=== PATIENT | female | born 1950 | race Caucasian/White ===

== ENCOUNTER 2019-07-24 14:42 | Observation (INO) | payer MEDICARE, OTHER ==
[2019-07-24] MEDS ORDERED: BABY ASPIRIN 81 MG CHEW PO ONE (14:53)
[2019-07-24] MEDS ORDERED: Nitrostat 0.4 MG (ED) SL ONE (14:53)
[2019-07-24] MEDS ORDERED: Pepcid 20 MG VIAL IV ONE ×2 (14:53→15:18)
--- NOTE | 2019-07-24 15:14 | ERPHSYRPT ---
- History of Present Illness Time Seen by Provider: 07/24/19 14:45 Historian: patient Exam Limitations: no limitations Patient Subjective Stated Complaint: Sudden onset chest pain in the medial sternum, came from physical therapy and had not began when the pain started, denies N&V, rates pain 08/14, Triage Nursing Assessment: vitals wnl, denies pain now at this time, pulses normal, S1-S2 sounds heard, states that pain had lasted for approx 2 minutes Physician History: Sudden onset of chest pain while waiting to start physical therapy. Timing/Duration: today (10 minutes ago) Activities at Onset: none Quality: pressure Location: central Chest Pain Radiation: no radiation Severity of Pain-Max: severe Severity of Pain-Current: mild Modifying Factors: Improves With: nothing Associated Symptoms: denies symptoms, No nausea, No vomiting, No palpitations, No heartburn, No abdominal pain, No shortness of breath, No cough, No hurts to breathe, No diaphoresis, No chills, No fever, No fatigue, No weakness, No swelling/lump in chest, No syncope, No rash, No headache, No dizziness, No edema , No back pain Prior Chest Pain/Cardiac Workup: no prior chest pain Nitro Today/Relief: no nitro taken today Aspirin Treatment Today: no aspirin today Allergies/Adverse Reactions: Penicillins Allergy (Severe, Verified 07/24/19 15:10) Difficulty Breathing Home Medications: Amlodipine Besylate 5 mg [Norvasc 5 mg] 5 mg PO DAILY 05/25/13 [History] Insulin Detemir [Levemir Flexpen] 64 unit SQ BID 09/11/13 [History] Insulin Lispro [Humalog] 25 unit SQ TIDWMEALS 05/06/14 [History] Atorvastatin Calcium [Lipitor] 20 mg PO DAILY 07/24/19 [History] Meloxicam [Mobic] 15 mg PO DAILY 07/24/19 [History] Methimazole 10 mg PO BID 07/24/19 [History] Metoprolol Succinate 25 mg Xl* [Toprol-Xl 25MG Tablets] 25 mg PO DAILY [History] Rivaroxaban [Xarelto] 20 mg PO DAILY 07/24/19 [History] Hx Tetanus, Diphtheria Vaccination/Date Given: Yes (>20 yrs) Hx Influenza Vaccination/Date Given: Yes (2013) Hx Pneumococcal Vaccination/Date Given: Yes (2013) - Review of Systems Constitutional: No Fever, No Chills, No Fatigue Eyes: No Eye Pain, No Vision Changes Ears, Nose, & Throat: No Epistaxis, No Hoarse, No Painful Swallowing Respiratory: No Cough, No Dyspnea Cardiac: Chest Pain, No Edema, No Syncope Abdominal/Gastrointestinal: No Abdominal Pain, No Nausea, No Vomiting, No Diarrhea, No Hematemesis, No Hematochezia, No Melena Genitourinary Symptoms: No Dysuria, No Hematuria, No Flank Pain Musculoskeletal: No Back Pain, No Neck Pain Skin: No Rash Neurological: No Dizziness, No Focal Weakness, No Sensory Changes All Other Systems: Reviewed and Negative - Past Medical History Pertinent Past Medical History: Yes Neurological History: No Pertinent History ENT History: No Pertinent History Cardiac History: High Cholesterol, Hypertension Respiratory History: No Pertinent History Endocrine Medical History: Diabetes Type II, Hypothyroidism Musculoskeletal History: Fractures, Osteoarthritis GI Medical History: Colorectal Cancer History: No Pertinent History Psycho-Social History: No Pertinent History Female Reproductive Disorders: Ovarian Cancer, Uterine Cancer Other Medical History: COLON AND UTERINE CANCER WITH HX OF HYSTERECTOMY AND COLECTOMY 2013. HX FX CLAVICLE >30 YEARS AGO. OA LEFT KNEE. - Past Surgical History Past Surgical History: Yes Neuro Surgical History: No Pertinent History Cardiac: No Pertinent History Respiratory: No Pertinent History Gastrointestinal: Colon Resection Genitourinary: No Pertinent History Musculoskeletal: No Pertinent History Female Surgical History: Section Other Surgical History: COLON RESECTION - Social History Smoking Status: Former smoker How long have you smoked: 10 yrs Exposure to second hand smoke: Yes Drug Use: none Patient Lives Alone: No - Nursing Vital Signs Nursing Vital Signs: Initial Vital Signs Temperature 97.9 F 07/24/19 14:47 Pulse Rate 97 H 07/24/19 14:47 Respiratory Rate 16 07/24/19 14:47 Blood Pressure 122/83 07/24/19 14:47 O2 Sat by Pulse Oximetry 98 07/24/19 14:47 Pain Scale Pain Intensity 10 - Physical Exam General Appearance: no apparent distress, alert Eye Exam: PERRL/EOMI, eyes nml inspection Ears, Nose, Throat Exam: normal ENT inspection, moist mucous membranes Neck Exam: normal inspection, non-tender, supple, full range of motion Respiratory Exam: normal breath sounds, lungs clear, airway intact, accessory muscle use, No respiratory distress, No crackles/rales, No rhonchi, No wheezing , No stridor Cardiovascular Exam: regular rate/rhythm, normal heart sounds, normal peripheral pulses, capillary refill <2 sec Gastrointestinal/Abdomen Exam: soft, No tenderness, No mass Back Exam: normal inspection, No CVA tenderness, No vertebral tenderness Extremity Exam: normal inspection, normal range of motion, No calf tenderness, No laury's sign, No pedal edema Neurologic Exam: alert, oriented x 3, cooperative, relationship management lead II-XII nml as tested, normal mood/affect, sensation nml, No motor deficits Skin Exam: normal color, warm, dry, No jaundice, No cyanosis SpO2 Interpretation: normal SpO2: 98 O2 Delivery: Room Air - Course Nursing assessment & vital signs reviewed: Yes EKG Interpreted by Me: RATE (96), Sinus Rhythm (sinus arrythmia), NORMAL AXIS, NORMAL INTERVALS, NORMAL QRS, NORMAL ST-T, Other (no appreciable change in comparison to EKG from 02/10/2019) - Radiology Exams Chest X-ray Interpretation: Interpreted by me, Reviewed by me, No Fracture, No Pneumonia, No Pneumothorax, No Infiltrates, Nml Mediastinum, Other (cardiomegaly ) Ordered Tests: Active Orders 24 hr Category Date Time Status K [employer] Principal STAT Care 07/24/19 14:54 Active EKG-ER Only STAT Care 07/24/19 14:53 Active IV Insertion STAT Care 07/24/19 14:53 Active CHEST 1 VIEW (PORTABLE) Stat Exams 07/24/19 14:54 Completed CBC W DIFF Stat Lab 07/24/19 15:05 Completed CK-Creatinine Phosphokinase Stat Lab 07/24/19 15:05 Completed CMP Stat Lab 07/24/19 15:05 Completed LIPASE Stat Lab 07/24/19 15:05 Completed NT PRO BNP Stat Lab 07/24/19 15:05 Completed PROTIME WITH INR Stat Lab 07/24/19 15:05 Completed PTT Stat Lab 07/24/19 15:05 Completed TROPONIN Q3H Lab 07/24/19 15:05 Completed TROPONIN Q3H Lab 07/24/19 18:00 Ordered TROPONIN Q3H Lab 07/24/19 21:00 Ordered TROPONIN Q3H Lab 07/25/19 00:00 Ordered TROPONIN Q3H Lab 07/25/19 03:00 Ordered Medication Summary Discontinued Medications Generic Name Dose Route Start Last Admin Trade Name Anatoly PRN Reason Stop Dose Admin Aspirin 324 mg 07/24/19 14:53 07/24/19 15:21 Baby Aspirin 81 Mg Chew PO 07/24/19 14:54 324 mg STAT ONE Administration Famotidine 20 mg 07/24/19 14:53 07/24/19 15:22 Pepcid 20 Mg Vial IV 07/24/19 14:54 20 mg STAT ONE Administration Famotidine Confirm 07/24/19 15:18 Pepcid 20 Mg Vial Administered 07/24/19 15:19 Dose 20 mg IV .STK-MED ONE Nitroglycerin 0.4 mg 07/24/19 14:53 07/24/19 16:01 Nitrostat 0.4 Mg (Ed) SL 07/24/19 14:54 Not Given STAT ONE Lab/Rad Data: Laboratory Result Diagrams 07/24/19 15:05 07/24/19 15:05 Laboratory Results 07/24/19 07/24/19 07/24/19 Range/Units 15:05 15:05 15:05 WBC (4.0-10.5) K/mm3 RBC (4.1-5.4) M/mm3 Hgb (12.0-16.0) gm/dl Hct (35-47) % MCV (78-100) fl MCH (26-32) pg MCHC (32-36) g/dl RDW (11.5-14.0) % Plt Count (150-450) K/mm3 MPV (6-9.5) fl Gran % (36.0-66.0) % Eos # (Auto) (0-0.5) Absolute Lymphs (auto) (1.0-4.6) Absolute Monos (auto) (0.0-1.3) Lymphocytes % (24.0-44.0) % Monocytes % (0.0-12.0) % Eosinophils % (0.00-5.0) % Basophils % (0.0-0.4) % Absolute Granulocytes (1.4-6.9) Basophils # (0-0.4) PT 24.1 H (9.95-12.35) SECONDS INR 2.10 (0.8-3.0) APTT 49.4 H (25.3-37.0) SECONDS Sodium (137-145) mmol/L Potassium (3.5-5.1) mmol/L Chloride (98-107) mmol/L Carbon Dioxide (22-30) mmol/L Anion Gap (5-15) MEQ/L BUN (7-17) mg/dL Creatinine (0.52-1.04) mg/dL Estimated GFR ML/MIN Glucose (74-106) mg/dL Calcium (8.4-10.2) mg/dL Total Bilirubin (0.2-1.3) mg/dL AST (14-36) U/L ALT (0-35) U/L Alkaline Phosphatase (38-126) U/L Creatine Kinase (30-135) U/L Troponin I < 0.012 (0.000-0.034) ng/mL NT-Pro-B Natriuret Pep (0-900) pg/mL Serum Total Protein (6.3-8.2) g/dL Albumin (3.5-5.0) g/dL Lipase 20 L (23-300) U/L 07/24/19 07/24/19 Range/Units 15:05 15:05 WBC 13.4 H (4.0-10.5) K/mm3 RBC 4.94 (4.1-5.4) M/mm3 Hgb 14.0 (12.0-16.0) gm/dl Hct 44.1 (35-47) % MCV 89.3 (78-100) fl MCH 28.3 (26-32) pg MCHC 31.7 L (32-36) g/dl RDW 14.9 H (11.5-14.0) % Plt Count 318 (150-450) K/mm3 MPV 10.1 H (6-9.5) fl Gran % 76.5 H (36.0-66.0) % Eos # (Auto) 0.18 (0-0.5) Absolute Lymphs (auto) 2.12 (1.0-4.6) Absolute Monos (auto) 0.79 (0.0-1.3) Lymphocytes % 15.9 L (24.0-44.0) % Monocytes % 5.9 (0.0-12.0) % Eosinophils % 1.3 (0.00-5.0) % Basophils % 0.4 (0.0-0.4) % Absolute Granulocytes 10.22 H (1.4-6.9) Basophils # 0.06 (0-0.4) PT (9.95-12.35) SECONDS INR (0.8-3.0) APTT (25.3-37.0) SECONDS Sodium 141 (137-145) mmol/L Potassium 4.1 (3.5-5.1) mmol/L Chloride 103 (98-107) mmol/L Carbon Dioxide 27 (22-30) mmol/L Anion Gap 14.7 (5-15) MEQ/L BUN 11 (7-17) mg/dL Creatinine 0.50 L (0.52-1.04) mg/dL Estimated GFR > 60.0 ML/MIN Glucose 212 H (74-106) mg/dL Calcium 8.9 (8.4-10.2) mg/dL Total Bilirubin 0.80 (0.2-1.3) mg/dL AST 68 H (14-36) U/L ALT 22 (0-35) U/L Alkaline Phosphatase 133 H (38-126) U/L Creatine Kinase 24 L (30-135) U/L Troponin I (0.000-0.034) ng/mL NT-Pro-B Natriuret Pep 87.4 (0-900) pg/mL Serum Total Protein 7.7 (6.3-8.2) g/dL Albumin 3.9 (3.5-5.0) g/dL Lipase (23-300) U/L - Progress Air Movement: good Progress Note: 07/24/19 15:08 Pain has resolved without medication given 07/24/19 16:52 Patient has no chest pain throughout her time in the emergency department. Patient has a HEART score of 5, moderate risk of MACE in the next 30 days 07/24/19 17:03 Discussed the case with Dr Kohli, Hospitalist. Dr Kohli accepted the patient for observation to the hospital for further monitoring and testing Discussed with .: Dustin Will see patient in: hospital (observation) Counseled pt/family regarding: lab results, diagnosis, need for follow-up, rad results - Departure Departure Disposition: Observation ([facility] to Dr Kohli' service) Clinical Impression: Acute chest pain Condition: Fair Critical Care Time: No Referrals: MIA KOHLI MD [Primary Care Provider] -
[2019-07-24 15:37] LABS: BASOPHIL % 0.4 % (0.0-0.4); Basophil (Absolute #) 0.06 (0-0.4); Eosinophil % 1.3 % (0.00-5.0); Eosinophil (Absolute #) 0.18 (0-0.5); Granulocyte Absolute (ANC) 10.22 (1.4-6.9); Granulocytes % 76.5 % (36.0-66.0); Hematocrit 44.1 % (35-47); Lymphocyte (Absolute #) 2.12 (1.0-4.6); Lymphocytes % 15.9 % (24.0-44.0); Mean Cell Volume 89.3 fl (78-100); Mean Corpuscular Hemoglobin 28.3 pg (26-32); Mean Corpuscular Hgb Concent. 31.7 g/dl (32-36); Mean Platelet Volume 10.1 fl (6-9.5); Monocyte (Absolute #) 0.79 (0.0-1.3); Monocytes % 5.9 % (0.0-12.0); Platelet Count 318 K/mm3 (150-450); Red Blood Count 4.94 M/mm3 (4.1-5.4); Red Cell Distribution Width 14.9 % (11.5-14.0); White Blood Count 13.4 K/mm3 (4.0-10.5)
[2019-07-24 15:59] LABS: ALBUMIN 3.9 g/dL (3.5-5.0); ALKALINE PHOSPHATASE 133 U/L (38-126); ANION GAP 14.7 MEQ/L (5-15); BLOOD UREA NITROGEN 11 mg/dL (7-17); CHLORIDE 103 mmol/L (98-107); CK-Creatinine Phosphokinase 24 U/L (30-135); Calcium 8.9 mg/dL (8.4-10.2); Carbon Dioxide 27 mmol/L (22-30); Glucose 212 mg/dL (74-106); INR 2.1 (0.8-3.0); NT PRO BNP 87.4 pg/mL (0-900); PROTIME 24.1 SECONDS (9.95-12.35); Potassium 4.1 mmol/L (3.5-5.1); SGOT/AST 68 U/L (14-36); SGPT/ALT 22 U/L (0-35); SODIUM 141 mmol/L (137-145); Total Protein 7.7 g/dL (6.3-8.2)
[2019-07-24 16:02] LABS: PTT 49.4 SECONDS (25.3-37.0)
--- NOTE | 2019-07-24 16:15 | XRAY ---
Indication: Chest pain. Comparison: November 17, 2013. Portable apical lordotic chest remains clear. Heart is not enlarged for AP portable technique. Bony thorax intact again with mild degenerative changes. Impression: Stable nonacute chest.
[2019-07-24] MEDS ORDERED: TYLENOL 325 MG PO PRN (17:53)
[2019-07-24] MEDS: Pepcid 20 MG PO SCH (21:09)
[2019-07-24] MEDS ORDERED: MILK OF MAGNESIA 30 ML PO PRN (21:32)
[2019-07-24] MEDS ORDERED: MAALOX ES 30 ML UNIT DOSE PO PRN (21:32)
[2019-07-24] MEDS ORDERED: Phenergan 25 MG INJ IV PRN (21:32)
[2019-07-24] MEDS ORDERED: Zofran 4 MG/2 ML VIAL IV PRN (21:32)
[2019-07-24] MEDS ORDERED: MORPHINE SULFATE 2 MG INJ IV PRN (21:32)
[2019-07-24] MEDS ORDERED: Nitrostat 0.4 MG Tablet SL PRN (21:32)
[2019-07-24] MEDS ORDERED: Senokot-S Tablet PO PRN (21:32)
[2019-07-24] MEDS: Lantus Insulin SQ SCH (22:33)
[2019-07-24] MEDS: NovoLOG Insulin SQ PRN (22:34)
[2019-07-25 04:06] VITALS: O2SAT 94
[2019-07-25] MEDS ORDERED: Sodium Chloride 0.9% 10 ML FLUSH Syringe IV SCH (06:00)
[2019-07-25] MEDS: NovoLOG Insulin SQ PRN (07:36)
[2019-07-25 07:54] VITALS: BP 142/60; PULSE 85
--- NOTE | 2019-07-25 08:21 | PCM.HP ---
History of Present Illness - Chief Complaint Chief Complaint: acute chest pain History of Present Illness: is a 68 year old female who presented to the ER yesterday with chest pain while she was at PT, she has a history of negative stress test last year and follows with Dr Kimbrough. She describes some vague pain in her chest from front to back, has resolved and had no pain overnight. She relays some problems with constipation as of late. - Review of Systems Constitutional: No Symptoms Respiratory: No Cough, No Short Of Breath Cardiac: Chest Pain Abdominal/Gastrointestinal: No Abdominal Pain, No Nausea, No Vomiting, No Diarrhea Genitourinary Symptoms: No Dysuria Skin: No Rash All Other Systems: Reviewed and Negative Medications & Allergies Home Medications: Home Medication List Amlodipine Besylate 5 mg [Norvasc 5 mg] 5 mg PO DAILY 05/25/13 [History Confirmed 07/24/19] Insulin Detemir [Levemir Flexpen] 64 unit SQ BID 09/11/13 [History Confirmed ] Insulin Lispro [Humalog] 25 unit SQ TIDWMEALS 05/06/14 [History Confirmed ] Atorvastatin Calcium [Lipitor] 20 mg PO DAILY 07/24/19 [History Confirmed ] Meloxicam [Mobic] 15 mg PO DAILY 07/24/19 [History Confirmed 07/24/19] Methimazole 10 mg PO BID 07/24/19 [History Confirmed 07/24/19] Metoprolol Succinate 25 mg Xl* [Toprol-Xl 25MG Tablets] 25 mg PO DAILY [History Confirmed 07/24/19] Rivaroxaban [Xarelto] 20 mg PO DAILY 07/24/19 [History Confirmed 07/24/19] Allergies/Adverse Reactions: Allergies Allergy/AdvReac Type Severity Reaction Status Date / Time corn Allergy Severe Verified 07/24/19 18:15 Penicillins Allergy Severe Difficulty Verified 07/24/19 15:10 Breathing - Past Medical History Past Medical History: Yes Neurological History: No Pertinent History ENT History: No Pertinent History Cardiac History: High Cholesterol, Hypertension Respiratory History: No Pertinent History Endocrine Medical History: Diabetes Type II, Hypothyroidism Musculoskelatal History: Fractures, Osteoarthritis GI Medical History: Colorectal Cancer History: No Pertinent History Pyscho-Social History: No Pertinent History Reproductive Disorders: Ovarian Cancer, Uterine Cancer Comment: COLON AND UTERINE CANCER WITH HX OF HYSTERECTOMY AND COLECTOMY 2014. HX FX CLAVICLE >30 YEARS AGO. OA LEFT KNEE. - Female History Are you now?: No - Past Surgical History Past Surgical History: Yes Neuro Surgical History: No Pertinent History Cardiac History: No Pertinent History Respiratory Surgery: No Pertinent History GI Surgical History: Colon Resection Genitourinary Surgical Hx: No Pertinent History Musculskeletal Surgical Hx: No Pertinent History Female Surgical History: Section Other Surgical History: COLON RESECTION - Social History Smoking Status: Never smoker How long have you smoked: 10 yrs Exposure to second hand smoke: Yes Alcohol: Rarely Drug Use: none - Physical Exam Vital Signs: Vital Signs - 24 hr Temp Pulse Pulse Resp BP Pulse Ox 07/25/19 07:53 98.5 F 85 20 142/60 94 L 07/25/19 04:04 98.2 F 87 22 127/72 94 L 07/25/19 00:13 98.7 F 91 H 18 132/66 93 L 07/24/19 19:40 98.5 F 87 20 128/60 94 L 07/24/19 18:41 96 07/24/19 18:22 98.5 F 87 20 114/60 94 L 07/24/19 17:36 98.4 F 78 21 114/60 95 07/24/19 17:19 84 20 121/62 98 07/24/19 17:15 98 07/24/19 16:59 97 H 102/54 88 L 07/24/19 16:47 79 22 103/50 94 L 07/24/19 15:55 98.3 F 87 12 127/57 90 L 07/24/19 15:48 98.3 F 87 12 127/57 90 L 07/24/19 14:47 97.9 F 92 H 97 H 16 122/83 98 General Appearance: no apparent distress, alert Neurologic Exam: alert, oriented x 3, cooperative, normal mood/affect, nml cerebellar function, nml station & gait, sensation nml, No motor deficits Eye Exam: PERRL/EOMI, eyes nml inspection Respiratory Exam: normal breath sounds, lungs clear, No respiratory distress Cardiovascular Exam: regular rate/rhythm, normal heart sounds, normal peripheral pulses Gastrointestinal/Abdomen Exam: soft, normal bowel sounds, No tenderness, No mass Extremity Exam: normal inspection, normal range of motion, pelvis stable Skin Exam: normal color, warm, dry, No rash Results - Labs Lab/Micro Results: Accuchecks Date 07/25/19 Time 07:30 Accucheck Value: 161 Accucheck Value: 247 Lab Results-Last 24 Hours 07/24/19 07/24/19 07/24/19 Range/Units 15:05 15:05 15:05 WBC 13.4 H (4.0-10.5) K/mm3 RBC 4.94 (4.1-5.4) M/mm3 Hgb 14.0 (12.0-16.0) gm/dl Hct 44.1 (35-47) % MCV 89.3 (78-100) fl MCH 28.3 (26-32) pg MCHC 31.7 L (32-36) g/dl RDW 14.9 H (11.5-14.0) % Plt Count 318 (150-450) K/mm3 MPV 10.1 H (6-9.5) fl Gran % 76.5 H (36.0-66.0) % Eos # (Auto) 0.18 (0-0.5) Absolute Lymphs (auto) 2.12 (1.0-4.6) Absolute Monos (auto) 0.79 (0.0-1.3) Lymphocytes % 15.9 L (24.0-44.0) % Monocytes % 5.9 (0.0-12.0) % Eosinophils % 1.3 (0.00-5.0) % Basophils % 0.4 (0.0-0.4) % Absolute Granulocytes 10.22 H (1.4-6.9) Basophils # 0.06 (0-0.4) PT 24.1 H (9.95-12.35) SECONDS INR 2.10 (0.8-3.0) APTT 49.4 H (25.3-37.0) SECONDS Sodium 141 (137-145) mmol/L Potassium 4.1 (3.5-5.1) mmol/L Chloride 103 (98-107) mmol/L Carbon Dioxide 27 (22-30) mmol/L Anion Gap 14.7 (5-15) MEQ/L BUN 11 (7-17) mg/dL Creatinine 0.50 L (0.52-1.04) mg/dL Estimated GFR > 60.0 ML/MIN Glucose 212 H (74-106) mg/dL Calcium 8.9 (8.4-10.2) mg/dL Total Bilirubin 0.80 (0.2-1.3) mg/dL AST 68 H (14-36) U/L ALT 22 (0-35) U/L Alkaline Phosphatase 133 H (38-126) U/L Creatine Kinase 24 L (30-135) U/L Troponin I (0.000-0.034) ng/mL NT-Pro-B Natriuret Pep 87.4 (0-900) pg/mL Serum Total Protein 7.7 (6.3-8.2) g/dL Albumin 3.9 (3.5-5.0) g/dL Lipase (23-300) U/L 07/24/19 07/24/19 07/24/19 Range/Units 15:05 15:05 18:10 WBC (4.0-10.5) K/mm3 RBC (4.1-5.4) M/mm3 Hgb (12.0-16.0) gm/dl Hct (35-47) % MCV (78-100) fl MCH (26-32) pg MCHC (32-36) g/dl RDW (11.5-14.0) % Plt Count (150-450) K/mm3 MPV (6-9.5) fl Gran % (36.0-66.0) % Eos # (Auto) (0-0.5) Absolute Lymphs (auto) (1.0-4.6) Absolute Monos (auto) (0.0-1.3) Lymphocytes % (24.0-44.0) % Monocytes % (0.0-12.0) % Eosinophils % (0.00-5.0) % Basophils % (0.0-0.4) % Absolute Granulocytes (1.4-6.9) Basophils # (0-0.4) PT (9.95-12.35) SECONDS INR (0.8-3.0) APTT (25.3-37.0) SECONDS Sodium (137-145) mmol/L Potassium (3.5-5.1) mmol/L Chloride (98-107) mmol/L Carbon Dioxide (22-30) mmol/L Anion Gap (5-15) MEQ/L BUN (7-17) mg/dL Creatinine (0.52-1.04) mg/dL Estimated GFR ML/MIN Glucose (74-106) mg/dL Calcium (8.4-10.2) mg/dL Total Bilirubin (0.2-1.3) mg/dL AST (14-36) U/L ALT (0-35) U/L Alkaline Phosphatase (38-126) U/L Creatine Kinase (30-135) U/L Troponin I < 0.012 < 0.012 (0.000-0.034) ng/mL NT-Pro-B Natriuret Pep (0-900) pg/mL Serum Total Protein (6.3-8.2) g/dL Albumin (3.5-5.0) g/dL Lipase 20 L (23-300) U/L 07/24/19 07/25/19 07/25/19 Range/Units 21:02 00:58 03:08 WBC (4.0-10.5) K/mm3 RBC (4.1-5.4) M/mm3 Hgb (12.0-16.0) gm/dl Hct (35-47) % MCV (78-100) fl MCH (26-32) pg MCHC (32-36) g/dl RDW (11.5-14.0) % Plt Count (150-450) K/mm3 MPV (6-9.5) fl Gran % (36.0-66.0) % Eos # (Auto) (0-0.5) Absolute Lymphs (auto) (1.0-4.6) Absolute Monos (auto) (0.0-1.3) Lymphocytes % (24.0-44.0) % Monocytes % (0.0-12.0) % Eosinophils % (0.00-5.0) % Basophils % (0.0-0.4) % Absolute Granulocytes (1.4-6.9) Basophils # (0-0.4) PT (9.95-12.35) SECONDS INR (0.8-3.0) APTT (25.3-37.0) SECONDS Sodium (137-145) mmol/L Potassium (3.5-5.1) mmol/L Chloride (98-107) mmol/L Carbon Dioxide (22-30) mmol/L Anion Gap (5-15) MEQ/L BUN (7-17) mg/dL Creatinine (0.52-1.04) mg/dL Estimated GFR ML/MIN Glucose (74-106) mg/dL Calcium (8.4-10.2) mg/dL Total Bilirubin (0.2-1.3) mg/dL AST (14-36) U/L ALT (0-35) U/L Alkaline Phosphatase (38-126) U/L Creatine Kinase (30-135) U/L Troponin I < 0.012 < 0.012 < 0.012 (0.000-0.034) ng/mL NT-Pro-B Natriuret Pep (0-900) pg/mL Serum Total Protein (6.3-8.2) g/dL Albumin (3.5-5.0) g/dL Lipase (23-300) U/L Accuchecks Date 07/25/19 Time 07:30 Accucheck Value: 161 Accucheck Value: 247 - Radiology Impressions Radiology Exams & Impressions: Radiology Procedures Category Date Time Status CHEST 1 VIEW (PORTABLE) Stat Exams 07/24/19 14:54 Completed ECHO W/2D AND DOPPLER [US] Routine Exams 07/25/19 10:00 Ordered Assessment/Plan (1) Chest pain Current Visit: Yes Status: Acute Assessment & Plan: CA ruled out, sounds like GI source possibly, will add pepcid Code(s): R07.9 - CHEST PAIN, UNSPECIFIED (2) Constipation Current Visit: Yes Status: Acute Assessment & Plan: add daily Miralax, f/u in office Code(s): K59.00 - CONSTIPATION, UNSPECIFIED
--- NOTE | 2019-07-25 08:23 | PCM.DCORD ---
- Discharge Disposition: Home, Self-Care Condition: Good Prescriptions: New Polyethylene Glycol 3350 17 gm [Miralax Powder 17GM PACKET] 17 gm PO DAILY #30 packet Famotidine [Pepcid] 40 mg PO HS #30 tablet Continue Amlodipine Besylate 5 mg [Norvasc 5 mg] 5 mg PO DAILY Insulin Detemir [Levemir Flexpen] 64 unit SQ BID Insulin Lispro [Humalog] 25 unit SQ TIDWMEALS Rivaroxaban [Xarelto] 20 mg PO DAILY Meloxicam [Mobic] 15 mg PO DAILY Metoprolol Succinate 25 mg Xl* [Toprol-Xl 25MG Tablets] 25 mg PO DAILY Methimazole 10 mg PO BID Atorvastatin Calcium [Lipitor] 20 mg PO DAILY Follow up with: MIA KOHLI MD [Primary Care Provider] - 1 Week SOO KENYON MD [CONSULTING PHYSICIAN] - 1 Week
[2019-07-25] MEDS: Pepcid 20 MG PO SCH (09:09)
[2019-07-25] MEDS: Lantus Insulin SQ SCH (09:09)
[2019-07-25] MEDS ORDERED: MEDICATION INTERVENTION PO SCH (09:30)
[2019-07-25] MEDS ORDERED: Toprol-Xl 25MG Tablets PO SCH (10:00)
[2019-07-25] MEDS ORDERED: NON-FORMULARY ITEM (Atorvastatin Calcium [Lipitor] 20 MG) PO SCH (10:00)
[2019-07-25] MEDS ORDERED: XARELTO 10 MG TABLET PO SCH (10:00)
[2019-07-25] MEDS ORDERED: METHIMAZOLE 10 MG PO SCH (10:00)
[2019-07-25] MEDS ORDERED: ZOCOR 20MG PO SCH (10:00)
[2019-07-25] MEDS ORDERED: Mobic 7.5 MG PO SCH (10:00)
[2019-07-25] MEDS ORDERED: NORVASC 5 MG PO SCH (10:00)
[2019-07-25] MEDS ORDERED: INSULIN LISPRO 25 UNIT SQ SCH (12:00)
[2019-07-25] MEDS ORDERED: NovoLOG Insulin SQ SCH (12:00)
== END 2019-07-25 10:00 | disposition home or self-care (01) ==
LOC: ED 14:42 → MED SURG 17:55
PROVIDERS: ADMIT Family Medicine; ATTEND Family Medicine
DX: R07.9 Chest pain, unspecified (principal); I10 Essential (primary) hypertension; E11.9 Type 2 diabetes mellitus without complications; E78.00 Pure hypercholesterolemia, unspecified; E03.9 Hypothyroidism, unspecified; K59.00 Constipation, unspecified; Z85.038 Personal history of other malignant neoplasm of large intestine; Z79.899 Other long term (current) drug therapy; Z85.42 Personal history of malignant neoplasm of other parts of uterus
CPT/HCPCS: 36000; 36415; 71045; 80053; 82550; 82962; 83036; 83690; 83880; 84484; 85025; 85610; 85730; 93005; 93041; 93268; 93306; 94760; 96374; 99285; A9270-GY; G0378

== ENCOUNTER 2022-10-11 06:13 | Emergency (ER) | payer MEDICARE ==
[2022-10-11] MEDS ORDERED: Hydromorphone 1 mg/ml Injection IV ONE (06:57)
[2022-10-11] MEDS ORDERED: Zofran 4 MG/2 ML VIAL IV ONE (06:57)
[2022-10-11] MEDS ORDERED: Sodium Chloride 0.9% 1000 ML 1,000 ML IV SCH (07:00)
[2022-10-11] MEDS ORDERED: Zofran 4 MG/2 ML VIAL ONE (07:11)
[2022-10-11] MEDS ORDERED: Sodium Chloride 0.9% 1000 ML 1,000 ML ONE (07:11)
[2022-10-11] MEDS ORDERED: Hydromorphone 1 mg/ml Injection ONE (07:11)
[2022-10-11 07:22] LABS: Bacteria FEW /HPF (NEGATIVE); Epithelial Cells FEW /HPF (FEW); Mucus SLIGHT /HPF (NEGATIVE); WBC 51-100 /HPF (0-5)
[2022-10-11 07:25] LABS: Absolute Neutrophil Ct (ANC) 13.04 x10^3/uL (1.4-6.9); Basophil (Absolute #) 0.04 x10^3/uL (0-0.4); Eosinophil % 0.5 % (0.00-5.0); Eosinophil (Absolute #) 0.08 x10^3/uL (0-0.5); Hematocrit 45.9 % (35-47); Hemoglobin 14.3 g/dL (12.0-16.0); Lymphocyte (Absolute #) 0.93 x10^3/uL (1.0-4.6); Lymphocytes % 6.1 % (24.0-44.0); Mean Cell Volume 86.3 fL (78-100); Mean Corpuscular Hemoglobin 26.9 pg (26-32); Mean Corpuscular Hgb Concent. 31.2 g/dL (32-36); Mean Platelet Volume 10.2 fL (7.5-11.0); Monocyte (Absolute #) 1.03 x10^3/uL (0.0-1.3); Monocytes % 6.8 % (0.0-12.0); Neutrophil % 85.8 % (36.0-66.0); Platelet Count 334 x10^3/uL (150-450); Red Blood Count 5.32 x10^6/uL (4.1-5.4); Red Cell Distribution Width 15.6 % (11.5-14.0); White Blood Count 15.2 x10^3/uL (4.0-10.5)
[2022-10-11 07:32] LABS: Appearance CLOUDY (CLEAR); Bilirubin NEGATIVE (NEGATIVE); Dipstick done @ ? MAIN LAB; Glucose 500 mg/dL (NEGATIVE); Ketones NEGATIVE (NEGATIVE); Nitrite NEGATIVE (NEGATIVE); Ph 5.5 (5-6); Protein,Urine Dip TRACE (Negative); RBC MODERATE Ery/ul (0-5); Specific Gravity 1.025 (1.005-1.025); Urine Cultured Indicated? YES; Urobilinogen 0.2 mg/dL (0-1)
[2022-10-11 07:33] LABS: INR 1.22 (0.8-3.0); PROTIME 12.7 SECONDS (9.4-12.5)
[2022-10-11 07:55] LABS: ALBUMIN 4.2 g/dL (3.5-5.0); ALKALINE PHOSPHATASE 126 U/L (38-126); AMYLASE 53 U/L (30-110); ANION GAP 12.3 MEQ/L (5-15); BLOOD UREA NITROGEN 17 mg/dL (7-17); CHLORIDE 96 mmol/L (98-107); Calcium 9.6 mg/dL (8.4-10.2); Carbon Dioxide 33 mmol/L (22-30); Creatinine 1 0.88 mg/dL (0.52-1.04); EST GLOMERULAR FILTRATION RATE > 60.0 ML/MIN; Glucose 213 mg/dL (74-106); LIPASE 22 U/L (23-300); Potassium 4.5 mmol/L (3.5-5.1); SGOT/AST 48 U/L (14-36); SGPT/ALT 13 U/L (0-35); SODIUM 137 mmol/L (137-145); Total Protein 8.5 g/dL (6.3-8.2)
--- NOTE | 2022-10-11 08:47 | XRAY ---
Indication: Right abdomen pain. History kidney stones. Multiple contiguous axial images obtained through the abdomen and pelvis without contrast using renal stone protocol. Comparison: February 22, 2021 Lung bases again demonstrates scattered subsegmental atelectasis/scarring. Heart remains borderline enlarged. New small hiatal hernia. Right kidney demonstrates stable nonobstructing punctate calculus. No new renal calculus or evidence for obstructive uropathy in either system. Noncontrasted stomach and bowel loops nonobstructed. Several small bowel loops are now mildly fluid distended with fluid leveling, ileus versus enteritis. Again appendectomy, cholecystotomy, and hysterectomy reported. No free fluid/air. Stable splenic calcified granulomas. Remaining liver, pancreas, spleen, adrenal glands, kidneys, ureters, and bladder are unremarkable for noncontrast exam. Minimal aortic calcifications without AAA. Osseous structures intact again with mild degenerative changes throughout the thoracolumbar spine. Again prominent bilateral inguinal lymph nodes again largest on the right measuring 1.5 x 2.7 cm. Impression: 1. Stable nonobstructing right renal punctate calculus. No new renal calculus or evidence for obstructive uropathy. 2. New small hiatal hernia. 3. New mild fluid distended small bowel loops with fluid leveling, ileus versus enteritis. 4. Again borderline cardiomegaly, arteriosclerotic disease, prominent bilateral inguinal lymph nodes, and degenerative spondylosis.
[2022-10-11] MEDS ORDERED: Levofloxacin 500MG/100ML D5W 500 MG/100 ML BAG IV ONE ×2 (09:13→09:25)
--- NOTE | 2022-10-11 09:19 | XRAY ---
Indication: Chest pain. Comparison: February 27, 2021 Portable chest inflated and is now clear. Heart not enlarged. Bony thorax intact again with osteopenia and degenerative changes. Impression: Nonacute chest with chronic bony findings.
--- NOTE | 2022-10-11 09:29 | ERPHSYRPT ---
- History of Present Illness Time Seen by Provider: 10/11/22 06:35 Historian: patient Exam Limitations: no limitations Patient Subjective Stated Complaint: Patient stated " I woke up around 0330 this am with severe upper ABD pain that radiates into right flank and into back. Complaints of left upper ABD pain." Complaints of N/V. Stated " I vomited times 1 around 0530 this am." Triage Nursing Assessment: Patient A/O times 4. Patient able to follow instructions without difficulty. Patient with complaints of ABD pain in upper right and left quads with complaints of pain on right side radiating into right flank and into lower back. Denies any HX of Kidney stones. Denies any SOB or chest pain. ABD tender upon palpitation. Denies any coffee ground or bloody emesis. Denies any bloody or loose stools. Patient currently being treated for Stage 1 Breast CA. Left breast/armpit is very red in color R/T radiation Physician History: Patient is a 71-year-old white female who presents with a complaint of right- sided abdominal pain which started at 3:30 AM today. The pain is in the right side and radiates across into the epigastrium and abdomen generally. It sharp and stabbing it is colicky. She has no change in urination at night at 4:45 AM today she did have some nausea and one episode of vomiting. She has had some sweats. She is currently being treated for breast cancer with radiation. She has her last general really radiation treatment today she still has focal treatments pending. Timing/Duration: today Quality: sharpness, stabbing Abdominal Pain Onset Location: flank (Right flank into the epigastric area) Pain Radiation: epigastric, other (Pain is colicky) Severity of Pain-Max: severe Severity of Pain-Current: mild Modifying Factors: Improves With: nothing Associated Symptoms: diaphoresis, nausea, vomiting Previous symptoms: no prior history Allergies/Adverse Reactions: corn Allergy (Severe, Verified 02/22/21 14:38) swelling. Penicillins Allergy (Severe, Verified 02/22/21 14:38) Difficulty Breathing Sulfa (Sulfonamide Antibiotics) Allergy (Verified 02/22/21 14:38) Home Medications: Amlodipine Besylate 5 mg [Norvasc 5 mg] 5 mg PO DAILY 05/25/13 [History] Insulin Detemir [Levemir Flexpen] 66 unit SQ BID 09/11/13 [History] Atorvastatin Calcium [Lipitor] 20 mg PO DAILY 07/24/19 [History] Metoprolol Succinate 25 mg Xl* [Toprol-Xl 25MG Tablets] 50 mg PO DAILY 07/24/19 [History] Rivaroxaban [Xarelto] 20 mg PO DAILY 07/24/19 [History] methIMAzole [Methimazole] 10 mg PO DAILY 07/24/19 [History] Ergocalciferol (Vitamin D2) [Vitamin D] 50,000 unit PO UD 02/22/21 [History] Furosemide 40 mg [Lasix 40 MG] 40 mg PO DAILY 02/22/21 [History] Insulin Lispro [Humalog] 25 unit SQ TID 02/22/21 [History] Spironolactone 25 mg [Aldactone 25 MG] 25 mg PO DAILY 02/22/21 [History] Hx Tetanus, Diphtheria Vaccination/Date Given: No Hx Influenza Vaccination/Date Given: No Hx Pneumococcal Vaccination/Date Given: No Immunizations Up to Date: Yes Travel Risk - International Travel Have you traveled outside of the country in past 3 weeks: No - Coronavirus Screening Are you exhibiting any of the following symptoms?: No Close contact with a COVID-19 positive Pt in past 14-21 Days: No - Vaccine Status Have you recieved a Covid-19 vaccination: Yes [employer]: Moderna - Vaccination Dates Date of 2cond Vaccination (if applicable): . - Review of Systems Constitutional: Night Sweats, No Fever, No Chills Eyes: No Symptoms Ears, Nose, & Throat: No Symptoms Respiratory: No Cough, No Dyspnea Cardiac: No Chest Pain, No Edema, No Syncope Abdominal/Gastrointestinal: Abdominal Pain, Nausea, Vomiting, No Diarrhea Genitourinary Symptoms: Flank Pain, No Dysuria Musculoskeletal: No Back Pain, No Neck Pain Skin: No Rash Neurological: No Dizziness, No Focal Weakness, No Sensory Changes Psychological: No Symptoms Endocrine: No Symptoms All Other Systems: Reviewed and Negative - Past Medical History Pertinent Past Medical History: Yes Neurological History: No Pertinent History ENT History: No Pertinent History Cardiac History: High Cholesterol, Hypertension Respiratory History: No Pertinent History Endocrine Medical History: Diabetes Type II, Hypothyroidism Musculoskeletal History: Fractures, Osteoarthritis GI Medical History: Colorectal Cancer History: No Pertinent History Psycho-Social History: No Pertinent History Female Reproductive Disorders: Breast Cancer, Ovarian Cancer, Uterine Cancer Other Medical History: COLON AND UTERINE CANCER WITH HX OF HYSTERECTOMY AND COLECTOMY 2014. HX FX CLAVICLE >30 YEARS AGO. OA LEFT KNEE. - Past Surgical History Past Surgical History: Yes Neuro Surgical History: No Pertinent History Cardiac: No Pertinent History Respiratory: No Pertinent History Gastrointestinal: Appendectomy, Cholecystectomy, Colon Resection Genitourinary: No Pertinent History Musculoskeletal: No Pertinent History Female Surgical History: Hysterectomy, Section Other Surgical History: COLON RESECTION - Social History Smoking Status: Former smoker How long have you smoked: 10 yrs Exposure to second hand smoke: Yes Drug Use: none Patient Lives Alone: No Significant Family History: no pertinent family hx - Nursing Vital Signs Nursing Vital Signs: Initial Vital Signs Temperature 97.6 F 10/11/22 06:14 Pulse Rate 81 10/11/22 06:14 Respiratory Rate 20 10/11/22 06:14 Blood Pressure 166/77 10/11/22 06:14 O2 Sat by Pulse Oximetry 94 L 10/11/22 06:14 Pain Scale Pain Intensity 4 - Physical Exam General Appearance: moderate distress, alert Eye Exam: PERRL/EOMI, eyes nml inspection Ears, Nose, Throat Exam: normal ENT inspection, pharynx normal, moist mucous membranes Neck Exam: normal inspection, non-tender, supple, full range of motion Respiratory Exam: normal breath sounds, lungs clear, No respiratory distress Cardiovascular Exam: regular rate/rhythm, normal heart sounds Gastrointestinal/Abdomen Exam: soft, tenderness, No mass Pelvic Exam: not done Rectal Exam: deferred Back Exam: normal inspection, normal range of motion, CVA tenderness (Right CVA tenderness), No vertebral tenderness Extremity Exam: normal inspection, normal range of motion, pelvis stable Neurologic Exam: alert, oriented x 3, cooperative, normal mood/affect, nml cerebellar function, sensation nml, No motor deficits Skin Exam: normal color, warm, dry SpO2 Interpretation: normal SpO2: 96 O2 Delivery: Room Air - Course Nursing assessment & vital signs reviewed: Yes - CT Exams Abdomen/Pelvis CT Interpretation: Other (There are some dilated loops of small bowel with air- fluid levels consistent with ileus versus enteritis. There is no sign of ureteral stones etc.) Ordered Tests: Active Orders 24 hr Category Date Time Status EKG-ER Only STAT Care 10/11/22 06:57 Active IV Insertion STAT Care 10/11/22 06:57 Active ABDOMEN AND PELVIS W/0 CONTRAS [CT] Stat Exams 10/11/22 06:58 Completed CHEST 1 VIEW (PORTABLE) Stat Exams 10/11/22 06:58 Completed AMYLASE Stat Lab 10/11/22 07:06 Completed CBC W DIFF Stat Lab 10/11/22 07:06 Completed CMP Stat Lab 10/11/22 07:06 Completed CULTURE,URINE Stat Lab 10/11/22 07:06 Received LIPASE Stat Lab 10/11/22 07:06 Completed Lactic Acid Stat Lab 10/11/22 06:57 Completed PROTIME WITH INR Stat Lab 10/11/22 07:06 Completed TROPONIN Q4H Lab 10/11/22 07:06 Completed TROPONIN Q4H Lab 10/11/22 11:00 Ordered TROPONIN Q4H Lab 10/11/22 15:00 Ordered UA W/RFX CULTURE Stat Lab 10/11/22 07:06 Completed Medication Summary Generic Name Dose Route Start Last Admin Trade Name Freq PRN Reason Stop Dose Admin Sodium Chloride 1,000 mls @ 100 mls/hr 10/11/22 07:00 10/11/22 07:14 Sodium Chloride 0.9% 1000 Ml IV 11/10/22 06:59 100 mls/hr .Q10H SERGEY Administration Levofloxacin/Dextrose 500 mg in 100 mls @ 100 mls/hr 10/11/22 09:13 Levofloxacin 500mg/100ml D5w IV 10/11/22 10:12 ONCALLTOOR ONE Discontinued Medications Generic Name Dose Route Start Last Admin Trade Name Freq PRN Reason Stop Dose Admin Hydromorphone HCl 1 mg 10/11/22 06:57 10/11/22 07:13 Hydromorphone 1 Mg/1ml Inj 1 Mg/Ml Syringe IV 10/11/22 06:58 1 mg STAT ONE Administration Hydromorphone HCl Confirm 10/11/22 07:11 Hydromorphone 1 Mg/1ml Inj 1 Mg/Ml Syringe Administered 10/11/22 07:12 Dose 1 mg .ROUTE .STK-MED ONE Ondansetron HCl 4 mg 10/11/22 06:57 10/11/22 07:13 Ondansetron Hcl 4 Mg/2 Ml Vial IV 10/11/22 06:58 4 mg STAT ONE Administration Ondansetron HCl Confirm 10/11/22 07:11 Ondansetron Hcl 4 Mg/2 Ml Vial Administered 10/11/22 07:12 Dose 4 mg .ROUTE .STK-MED ONE Lab/Rad Data: Laboratory Result Diagrams 10/11/22 07:06 10/11/22 07:06 Laboratory Results 10/11/22 10/11/22 10/11/22 Range/Units 07:06 07:06 07:06 WBC (4.0-10.5) x10^3/uL RBC (4.1-5.4) x10^6/uL Hgb (12.0-16.0) g/dL Hct (35-47) % MCV (78-100) fL MCH (26-32) pg MCHC (32-36) g/dL RDW (11.5-14.0) % Plt Count (150-450) x10^3/uL MPV (7.5-11.0) fL Gran % (36.0-66.0) % Immature Gran % (Auto) (0.00-0.4) % Nucleat RBC Rel Count (0.00-0.1) % Eos # (Auto) (0-0.5) x10^3/uL Immature Gran # (Auto) (0.00-0.03) x10^3u/L Absolute Lymphs (auto) (1.0-4.6) x10^3/uL Absolute Monos (auto) (0.0-1.3) x10^3/uL Absolute Nucleated RBC (0.00-0.01) x10^3u/L Lymphocytes % (24.0-44.0) % Monocytes % (0.0-12.0) % Eosinophils % (0.00-5.0) % Basophils % (0.0-0.4) % Absolute Granulocytes (1.4-6.9) x10^3/uL Basophils # (0-0.4) x10^3/uL PT 12.7 H (9.4-12.5) SECONDS INR 1.22 (0.8-3.0) Sodium (137-145) mmol/L Potassium (3.5-5.1) mmol/L Chloride (98-107) mmol/L Carbon Dioxide (22-30) mmol/L Anion Gap (5-15) MEQ/L BUN (7-17) mg/dL Creatinine (0.52-1.04) mg/dL Estimated GFR ML/MIN Glucose (74-106) mg/dL Lactic Acid (0.4-2.0) Calcium (8.4-10.2) mg/dL Total Bilirubin (0.2-1.3) mg/dL AST (14-36) U/L ALT (0-35) U/L Alkaline Phosphatase (38-126) U/L Troponin I < 0.012 (0.000-0.034) ng/mL Serum Total Protein (6.3-8.2) g/dL Albumin (3.5-5.0) g/dL Amylase (30-110) U/L Lipase (23-300) U/L Urinalys Dipstick Clnc MAIN LAB Urine Color YELLOW (YELLOW) Urine Appearance CLOUDY A (CLEAR) Urine pH 5.5 (5-6) Ur Specific [place] 1.025 (1.005-1.025) POC Urine Protein Conf TRACE A (Negative) Urine Ketones NEGATIVE (NEGATIVE) Urine Nitrite NEGATIVE (NEGATIVE) Urine Bilirubin NEGATIVE (NEGATIVE) Urine Urobilinogen 0.2 (0-1) mg/dL Urine Leukocytes TRACE A (NEGATIVE) Urine WBC (Auto) 51-100 A (0-5) /HPF Urine RBC (Auto) 6-10 A (0-2) /HPF U Epithel Cells (Auto) FEW (FEW) /HPF Urine Bacteria (Auto) FEW A (NEGATIVE) /HPF Urine RBC MODERATE A (0-5) Darryl/ul Urine Mucus (Auto) SLIGHT A (NEGATIVE) /HPF Ur Culture Indicated? YES Urine Glucose 500 A (NEGATIVE) mg/dL 10/11/22 10/11/22 10/11/22 Range/Units 07:06 07:06 06:57 WBC 15.2 H (4.0-10.5) x10^3/uL RBC 5.32 (4.1-5.4) x10^6/uL Hgb 14.3 (12.0-16.0) g/dL Hct 45.9 (35-47) % MCV 86.3 (78-100) fL MCH 26.9 (26-32) pg MCHC 31.2 L (32-36) g/dL RDW 15.6 H (11.5-14.0) % Plt Count 334 (150-450) x10^3/uL MPV 10.2 (7.5-11.0) fL Gran % 85.8 H (36.0-66.0) % Immature Gran % (Auto) 0.5 H (0.00-0.4) % Nucleat RBC Rel Count 0.0 (0.00-0.1) % Eos # (Auto) 0.08 (0-0.5) x10^3/uL Immature Gran # (Auto) 0.08 H (0.00-0.03) x10^3u/L Absolute Lymphs (auto) 0.93 L (1.0-4.6) x10^3/uL Absolute Monos (auto) 1.03 (0.0-1.3) x10^3/uL Absolute Nucleated RBC 0.00 (0.00-0.01) x10^3u/L Lymphocytes % 6.1 L (24.0-44.0) % Monocytes % 6.8 (0.0-12.0) % Eosinophils % 0.5 (0.00-5.0) % Basophils % 0.3 (0.0-0.4) % Absolute Granulocytes 13.04 H (1.4-6.9) x10^3/uL Basophils # 0.04 (0-0.4) x10^3/uL PT (9.4-12.5) SECONDS INR (0.8-3.0) Sodium 137 (137-145) mmol/L Potassium 4.5 (3.5-5.1) mmol/L Chloride 96 L (98-107) mmol/L Carbon Dioxide 33 H (22-30) mmol/L Anion Gap 12.3 (5-15) MEQ/L BUN 17 (7-17) mg/dL Creatinine 0.88 (0.52-1.04) mg/dL Estimated GFR > 60.0 ML/MIN Glucose 213 H (74-106) mg/dL Lactic Acid 2.2 H (0.4-2.0) Calcium 9.6 (8.4-10.2) mg/dL Total Bilirubin 1.00 (0.2-1.3) mg/dL AST 48 H (14-36) U/L ALT 13 (0-35) U/L Alkaline Phosphatase 126 (38-126) U/L Troponin I (0.000-0.034) ng/mL Serum Total Protein 8.5 H (6.3-8.2) g/dL Albumin 4.2 (3.5-5.0) g/dL Amylase 53 (30-110) U/L Lipase 22 L (23-300) U/L Urinalys Dipstick Clnc Urine Color (YELLOW) Urine Appearance (CLEAR) Urine pH (5-6) Ur Specific [place] (1.005-1.025) POC Urine Protein Conf (Negative) Urine Ketones (NEGATIVE) Urine Nitrite (NEGATIVE) Urine Bilirubin (NEGATIVE) Urine Urobilinogen (0-1) mg/dL Urine Leukocytes (NEGATIVE) Urine WBC (Auto) (0-5) /HPF Urine RBC (Auto) (0-2) /HPF U Epithel Cells (Auto) (FEW) /HPF Urine Bacteria (Auto) (NEGATIVE) /HPF Urine RBC (0-5) Darryl/ul Urine Mucus (Auto) (NEGATIVE) /HPF Ur Culture Indicated? Urine Glucose (NEGATIVE) mg/dL - Progress Progress: improved Progress Note: 10/11/22 09:30 Patient was treated with antibiotics for pyuria, hematuria makes us suspicious that there has been a stone that may have passed prior to the CT scan. The plan is to treat her urinary tract infection and do that with Levaquin and [place]. - Departure Departure Disposition: Home Clinical Impression: Urinary tract infection Condition: Stable Critical Care Time: No Referrals: MIA KOHLI MD [Primary Care Provider] - Follow up/PCP as directed Instructions: Severe Abdominal Pain, Adult (DC), Urinary Tract Infection, Adult (DC) Prescriptions: Hydrocodone/Acetaminophen [Hydrocodone-Acetamin 5-325 mg] 1 tab PO Q6HPRN PRN 3 Days #12 tablet MDD 4 PRN Reason: Pain Ciprofloxacin [Cipro 500 MG] 500 mg PO BID 10 Days #20 tablet
[2022-10-11 10:35] VITALS: BP 110/71; PULSE 79; O2SAT 95
== END 2022-10-11 10:38 | disposition home or self-care (01) ==
LOC: ED 06:13
DX: N39.0 Urinary tract infection, site not specified (principal); R10.9 Unspecified abdominal pain; R11.2 Nausea with vomiting, unspecified; E78.5 Hyperlipidemia, unspecified; I10 Essential (primary) hypertension; E11.9 Type 2 diabetes mellitus without complications; Z79.01 Long term (current) use of anticoagulants; Z79.4 Long term (current) use of insulin; Z79.899 Other long term (current) drug therapy; Z79.891 Long term (current) use of opiate analgesic
CPT/HCPCS: 36000; 36415; 71045; 74176; 80053; 81015; 82150; 83605; 83690; 84484; 85025; 85610; 87086; 93005; 96365; 96374; 96375; 99284; J1170; J1956; J2405

== ENCOUNTER 2024-03-16 16:50 | Emergency (ER) | payer MEDICARE ==
[2024-03-16 17:07] VITALS: TEMP 96.7
--- NOTE | 2024-03-16 17:26 | ERPHSYRPT ---
- History of Present Illness Time Seen by Provider: 03/16/24 17:21 Source: patient, family Exam Limitations: no limitations Patient Subjective Stated Complaint: pt here for b/p problems, and pain to head,nose and right rib area, topday about an hour ago Triage Nursing Assessment: pt alert, resp easy, walked in,skin w/d/p., edema to lower legs that is normal for her, no cough Physician History: Patient is 73-year-old female with significant past medical history of hypertension diabetes obesity Atrial Fibrillation started having a right-sided neck pain right-sided face pain and right-sided epigastric pain started ap proximately 1 hour ago. She denies any shortness of breath nausea or vomiting. Her brought her into the emergency room. Timing/Duration: today Activities at Onset: none Quality: dullness Location: epigastric Chest Pain Radiation: neck Severity of Pain-Max: mild Severity of Pain-Current: moderate Modifying Factors: Improves With: nothing Nitro Today/Relief: no nitro taken today Aspirin Treatment Today: no aspirin today Associated Symptoms: denies symptoms Prior Chest Pain/Cardiac Workup: no prior chest pain Body Map: 1 - area of pain Allergies/Adverse Reactions: corn Allergy (Severe, Verified 03/16/24 17:13) swelling. Penicillins Allergy (Severe, Verified 03/16/24 17:13) Difficulty Breathing Sulfa (Sulfonamide Antibiotics) Allergy (Verified 03/16/24 17:13) Home Medications: Amlodipine Besylate 5 mg [Norvasc 5 mg] 5 mg PO DAILY 05/25/13 [History] Insulin Detemir [Levemir Flexpen] 66 unit SQ BID 09/11/13 [History] Atorvastatin Calcium [Lipitor] 20 mg PO DAILY 07/24/19 [History] Metoprolol Succinate 25 mg Xl* [Toprol-Xl 25MG Tablets] 50 mg PO DAILY 07/24/19 [History] Rivaroxaban [Xarelto] 20 mg PO DAILY 07/24/19 [History] methIMAzole [Methimazole] 10 mg PO DAILY 07/24/19 [History] Ergocalciferol (Vitamin D2) [Vitamin D] 50,000 unit PO UD 02/22/21 [History] Furosemide 40 mg [Lasix 40 MG] 40 mg PO DAILY 02/22/21 [History] Insulin Lispro [Humalog] 25 unit SQ TID 02/22/21 [History] Spironolactone 25 mg [Aldactone 25 MG] 25 mg PO DAILY 02/22/21 [History] Hx Tetanus, Diphtheria Vaccination/Date Given: No Hx Influenza Vaccination/Date Given: No Hx Pneumococcal Vaccination/Date Given: No Immunizations Up to Date: Yes Travel Risk - International Travel Have you traveled outside of the country in past 3 weeks: No - Emerging Infectious Disease Are you exhibiting symptoms associated with any current EIDs: No - Review of Systems Constitutional: No Fever, No Chills Eyes: No Symptoms Ears, Nose, & Throat: No Symptoms Respiratory: No Cough, No Dyspnea Cardiac: Chest Pain (right side), Palpitations, No Edema, No Syncope, No Ortho pnea, No PND Abdominal/Gastrointestinal: No Abdominal Pain, No Nausea, No Vomiting, No Diarrhea Genitourinary Symptoms: No Dysuria Musculoskeletal: No Back Pain, No Neck Pain Skin: No Rash Neurological: No Dizziness, No Focal Weakness, No Sensory Changes Psychological: No Symptoms Endocrine: No Symptoms All Other Systems: Reviewed and Negative - Past Medical History Pertinent Past Medical History: Yes Neurological History: No Pertinent History ENT History: No Pertinent History Cardiac History: Arrhythmia, Coronary Artery Disease, High Cholesterol, Hypertension Respiratory History: No Pertinent History Endocrine Medical History: Diabetes Type II, Hypothyroidism Musculoskeletal History: Fractures, Osteoarthritis GI Medical History: Colorectal Cancer History: No Pertinent History Psycho-Social History: No Pertinent History Female Reproductive Disorders: Breast Cancer, Ovarian Cancer, Uterine Cancer Other Medical History: COLON AND UTERINE CANCER WITH HX OF HYSTERECTOMY AND COLECTOMY 2013. HX FX CLAVICLE >30 YEARS AGO. OA LEFT KNEE. - Past Surgical History Past Surgical History: Yes Neuro Surgical History: No Pertinent History Cardiac: No Pertinent History Respiratory: No Pertinent History Gastrointestinal: Appendectomy, Cholecystectomy, Colon Resection Genitourinary: No Pertinent History Musculoskeletal: No Pertinent History Female Surgical History: Hysterectomy, Section Other Surgical History: COLON RESECTION Significant Family History: no pertinent family hx - Social History Smoking Status: Former smoker How long have you smoked: 10 yrs Exposure to second hand smoke: Yes Drug Use: none Patient Lives Alone: No - Nursing Vital Signs Nursing Vital Signs: Initial Vital Signs Temperature 96.7 F 03/16/24 17:06 Pulse Rate 79 03/16/24 17:06 Respiratory Rate 22 03/16/24 17:06 Blood Pressure 147/68 03/16/24 17:06 O2 Sat by Pulse Oximetry 96 03/16/24 17:06 Pain Scale Pain Intensity 3 - Physical Exam General Appearance: no apparent distress, alert Eye Exam: PERRL/EOMI, eyes nml inspection Ears, Nose, Throat Exam: normal ENT inspection, moist mucous membranes Neck Exam: normal inspection, non-tender, supple Respiratory Exam: normal breath sounds, lungs clear, No respiratory distress Cardiovascular Exam: regular rate/rhythm, normal heart sounds, No edema Gastrointestinal/Abdomen Exam: soft, No tenderness, No mass Back Exam: normal inspection, No CVA tenderness, No vertebral tenderness Extremity Exam: normal inspection, normal range of motion Neurologic Exam: alert, oriented x 3, cooperative, normal mood/affect, nml cerebellar function, sensation nml, No motor deficits Skin Exam: normal color, warm, dry Lymphatic Exam: No adenopathy SpO2: 96 - Course Nursing assessment & vital signs reviewed: Yes EKG Interpreted by Me: Sinus Rhythm Rhythm Strip: Normal Sinus Rhythm - Radiology Exams Chest X-ray Interpretation: Interpreted by me, Reviewed by me, No Infiltrates (cardiomegaly) Ordered Tests: Active Orders 24 hr Category Date Time Status EKG-ER Only STAT Care 03/16/24 17:09 Active Oxygen-ED Only Nasal Cannula 2 lpm Care 03/16/24 17:09 Active CHEST 1 VIEW (PORTABLE) Stat Exams 03/16/24 17:24 Completed CBC W DIFF Stat Lab 03/16/24 17:46 Completed CMP Stat Lab 03/16/24 17:46 Completed NT PRO BNPII Stat Lab 03/16/24 17:46 Completed TROPONIN Q4H Lab 03/16/24 17:46 Completed TROPONIN Q4H Lab 03/16/24 21:15 Ordered TROPONIN Q4H Lab 03/17/24 01:15 Ordered Medication Summary Generic Name Dose Route Start Last Admin Trade Name Freq PRN Reason Stop Dose Admin Sodium Chloride 1,000 mls @ 50 mls/hr 03/16/24 17:15 03/16/24 17:54 Sodium Chloride 0.9% 1000 Ml IV 04/15/24 17:14 50 mls/hr .Q20H SERGEY Administration Discontinued Medications Generic Name Dose Route Start Last Admin Trade Name Anatoly PRN Reason Stop Dose Admin Aspirin 81 mg 03/16/24 17:09 03/16/24 17:56 Aspirin 81 Mg Tab.Chew PO 03/16/24 17:10 81 mg STAT ONE Administration Aspirin Confirm 03/16/24 17:49 Aspirin 81 Mg Tab.Chew Administered 03/16/24 17:50 Dose 81 mg .ROUTE .STK-MED ONE Ceftriaxone Sodium 1,000 mg 03/16/24 18:16 Ceftriaxone Sodium 1000 Mg Inj Vial IM 03/16/24 18:17 STAT ONE Morphine Sulfate 4 mg 03/16/24 17:09 03/16/24 17:57 Morphine Sulfate 4 Mg/Ml Injection IV 03/16/24 17:10 4 mg STAT ONE Administration Morphine Sulfate Confirm 03/16/24 17:50 Morphine Sulfate 4 Mg/Ml Injection Administered 03/16/24 17:51 Dose 4 mg .ROUTE .STK-MED ONE Nitroglycerin 0.4 mg 03/16/24 17:09 03/16/24 17:56 Nitroglycerin 0.4 Mg (Ed) 0.4 Mg Tab.Subl SL 03/16/24 17:10 0.4 mg STAT ONE Administration Nitroglycerin Confirm 03/16/24 17:49 Nitroglycerin 0.4 Mg (Ed) 0.4 Mg Tab.Subl Administered 03/16/24 17:50 Dose 0.4 mg SL .STK-MED ONE Lab/Rad Data: Laboratory Result Diagrams 03/16/24 17:46 03/16/24 17:46 Laboratory Results 03/16/24 03/16/24 03/16/24 Range/Units 17:46 17:46 17:46 WBC 11.8 H (4.0-10.5) x10^3/uL RBC 5.01 (4.1-5.4) x10^6/uL Hgb 13.1 (12.0-16.0) g/dL Hct 42.5 (35-47) % MCV 84.8 (78-100) fL MCH 26.1 (26-32) pg MCHC 30.8 L (32-36) g/dL RDW 14.9 H (11.5-14.0) % Plt Count 346 (150-450) x10^3/uL MPV 9.4 (7.5-11.0) fL Gran % 78.1 H (36.0-66.0) % Immature Gran % (Auto) 0.3 (0.00-0.4) % Nucleat RBC Rel Count 0.0 (0.00-0.1) % Eos # (Auto) 0.19 (0-0.5) x10^3/uL Immature Gran # (Auto) 0.04 H (0.00-0.03) x10^3u/L Absolute Lymphs (auto) 1.48 (1.0-4.6) x10^3/uL Absolute Monos (auto) 0.82 (0.0-1.3) x10^3/uL Absolute Nucleated RBC 0.00 (0.00-0.01) x10^3u/L Lymphocytes % 12.6 L (24.0-44.0) % Monocytes % 7.0 (0.0-12.0) % Eosinophils % 1.6 (0.00-5.0) % Basophils % 0.4 (0.0-0.4) % Absolute Granulocytes 9.21 H (1.4-6.9) x10^3/uL Basophils # 0.05 (0-0.4) x10^3/uL Sodium 141 (135-145) mmol/L Potassium 3.9 (3.5-5.1) mmol/L Chloride 105 (98-107) mmol/L Carbon Dioxide 29 (22-30) mmol/L Anion Gap 11.4 (5-15) MEQ/L BUN 16 (7-17) mg/dL Creatinine 0.73 (0.52-1.04) mg/dL Estimated GFR 87.3 ML/MIN Glucose 145 H (74-106) mg/dL Calcium 8.4 (8.4-10.2) mg/dL Total Bilirubin 0.40 (0.2-1.3) mg/dL AST 15 (14-36) U/L ALT 10 (0-35) U/L Alkaline Phosphatase 86 (38-126) U/L Troponin I < 0.012 (0.000-0.033) ng/mL NT-Pro-B Natriuret Pep 183 (<300) pg/mL Serum Total Protein 7.1 (6.3-8.2) g/dL Albumin 3.7 (3.5-5.0) g/dL - Progress Progress: improved Air Movement: good Blood Culture(s) Obtained: No Antibiotics given: Yes Counseled pt/family regarding: lab results, diagnosis, need for follow-up, rad results Medical Desision Making - Independent Historian Additional History obtained from: Spouse - Diagnostic Testing Diagnostic test were ordered, analyzed, and reviewed by me: Yes Radiological Interpretation: Interpreted by me, Reviewed by me, Discussed w/ radiologist - Risk of complications Low Risk: Low risk of morbidity from additional dx testing or treatment - Departure Departure Disposition: Home Clinical Impression: Right-sided chest wall pain, Right-sided chest pain, Atelectasis of right lung Condition: Stable Critical Care Time: No Referrals: MIA KOHLI MD [Primary Care Provider] - Follow up/PCP as directed Instructions: Atelectasis Additional Instructions: Discharge/Care Plan LUCRETIA CHEN was seen on 03/16/24 in the Emergency Room. The patient was counseled regarding Diagnosis,Lab results, Imaging studies, need for follow up and when to return to the Emergency Room. Prescriptions given: Discharge Note I have spoken with the patient and/or caregivers. I have explained the patient's condition, diagnosis and treatment plan based on the information available to me at this time. I have answered the patient's and/or caregiver's questions and addressed any concerns. The patient and/or caregivers have as good understanding of the patient's diagnosis, condition and treatment plan as can be expected at this point. The vital signs have been stable. The patient's condition is stable and appropriate for discharge from the emergency department. The patient will pursue further outpatient evaluation with the primary care josé manuel laurent or other designated or consulting physician as outlined in the discharge instructions. The patient and/or caregivers are agreeable to this plan of care and follow-up instructions have been explained in detail. The patient and/or caregivers have received these instruction. The patient/and or caregivers are aware that any significant change in condition or worsening of symptoms should prompt an immediate return to this or the closest emergency department or call 911. LUCRETIA CHEN was seen on 05/12/24 n the Emergency Room. At that time you were treated for an emergent condition, during your visit Laboratory, Radiology and/or other procedures may have been ordered. It is very important that you follow-up with your Primary Care Physician MIA KOHLI within the next 24- 48 hours to review your Emergency Room visit and the final results of testing that was ordered. Some test results such as Urine Cultures, Blood Cultures, and other cultures if ordered will not be finalized for 24-48 hours. If you do not have a Primary Care Provider please call the medical records department at [phone] to obtain a copy of your results or you may sign into our patient portal to obtain these results by visiting us @ [email or web address] and completing the following steps: 1. Click on the Patient Portal link 2. Click the Patient Self Enrollment Link to complete the enrollment form and entering your 3. Once the enrollment form is completed you will receive an email with a temporary ID and password at the email address you provided. 4. Next choose a user name and password. Your user name must be at least 4 characters long and your password must be at least 4 characters long. 5. Choose a security question from the list and provide your answer to the question. If you already have signed into the Health Portal you may access your Health Care Information 28/05 by the following steps: 1. Login to our website @ [email or web address] 2. Enter your original user name and password. FAQS [facility] is an online tool that contains your Lab Results, Radiology Reports, Visit History, Discharge Instructions and Health Summary Lab and Radiology Results will not be available for 72 hours on the portal. The Portal is a secure site, passwords are encryted and URLs are re-written so they cannot be copied and pasted. You and authorized family members are the only ones who can access your Portal. Also there is a timeout feature that protects your information if you leave the Portal page open. If you have technical difficulty please use the Contact Us link on the page this will allow you to submit any questions you have regarding the Portal or you may contact the Medical Record Department at [phone] ext [phone]. Prescriptions: Azithromycin [Zithromax] 500 mg PO DAILY #3 tablet
[2024-03-16 17:48] LABS: Absolute Neutrophil Ct (ANC) 9.21 x10^3/uL (1.4-6.9); BASOPHIL % 0.4 % (0.0-0.4); Basophil (Absolute #) 0.05 x10^3/uL (0-0.4); Eosinophil % 1.6 % (0.00-5.0); Eosinophil (Absolute #) 0.19 x10^3/uL (0-0.5); Hematocrit 42.5 % (35-47); Hemoglobin 13.1 g/dL (12.0-16.0); IMMATURE GRAN # 0.04 x10^3u/L (0.00-0.03); IMMATURE GRAN % 0.3 % (0.00-0.4); Lymphocyte (Absolute #) 1.48 x10^3/uL (1.0-4.6); Lymphocytes % 12.6 % (24.0-44.0); Mean Cell Volume 84.8 fL (78-100); Mean Corpuscular Hemoglobin 26.1 pg (26-32); Mean Corpuscular Hgb Concent. 30.8 g/dL (32-36); Mean Platelet Volume 9.4 fL (7.5-11.0); Monocyte (Absolute #) 0.82 x10^3/uL (0.0-1.3); Neutrophil % 78.1 % (36.0-66.0); Platelet Count 346 x10^3/uL (150-450); Red Blood Count 5.01 x10^6/uL (4.1-5.4); Red Cell Distribution Width 14.9 % (11.5-14.0); White Blood Count 11.8 x10^3/uL (4.0-10.5)
[2024-03-16] MEDS ORDERED: BABY ASPIRIN 81 MG CHEW ONE (17:49)
[2024-03-16] MEDS ORDERED: Nitrostat 0.4 MG (ED) SL ONE (17:49)
[2024-03-16] MEDS ORDERED: Sodium Chloride 0.9% 1000 ML 1,000 ML ONE (17:50)
[2024-03-16] MEDS ORDERED: MORPHINE SULFATE 4 MG INJ ONE (17:50)
[2024-03-16] MEDS: Sodium Chloride 0.9% 1000 ML 1,000 ML IV SCH (17:54)
[2024-03-16] MEDS: Nitrostat 0.4 MG (ED) SL ONE (17:56)
[2024-03-16] MEDS: BABY ASPIRIN 81 MG CHEW PO ONE (17:56)
[2024-03-16] MEDS: MORPHINE SULFATE 4 MG INJ IV ONE (17:57)
[2024-03-16 18:01] VITALS: BP 127/59; PULSE 80; RESP 12
--- NOTE | 2024-03-16 18:03 | XRAY ---
Indication: Right chest pain. Comparison: October 11, 2022 Portable chest now demonstrates cardiomegaly obscuring left lung base. New lingula subsegmental atelectasis/scarring. No focal infiltrate, consolidation, or large effusion. Bony thorax intact again with osteopenia and degenerative changes. Impression: Cardiomegaly and lingula atelectasis/scarring. Negative for acute pneumonic process or CHF.
[2024-03-16 18:12] LABS: ALBUMIN 3.7 g/dL (3.5-5.0); ANION GAP 11.4 MEQ/L (5-15); BILIRUBIN,TOTAL 0.4 mg/dL (0.2-1.3); Calcium 8.4 mg/dL (8.4-10.2); Creatinine 1 0.73 mg/dL (0.52-1.04); EST GLOMERULAR FILTRATION RATE 87.3 ML/MIN; Potassium 3.9 mmol/L (3.5-5.1); Total Protein 7.1 g/dL (6.3-8.2)
[2024-03-16 18:14] LABS: NT PRO BNPII 183 pg/mL (<300); TROPONIN < 0.012 ng/mL (0.000-0.033)
[2024-03-16 18:24] VITALS: O2SAT 96
[2024-03-16] MEDS ORDERED: XYLOCAINE 1% HCL 20 ML MDV ONE (18:29)
[2024-03-16] MEDS ORDERED: Rocephin 1000 MG INJ ONE (18:29)
[2024-03-16] MEDS: Rocephin 1000 MG INJ IM ONE (18:32)
== END 2024-03-16 18:52 | disposition home or self-care (01) ==
LOC: ED 16:50
DX: J98.11 Atelectasis (principal); R07.9 Chest pain, unspecified; R07.89 Other chest pain; M54.2 Cervicalgia; R51.9 Headache, unspecified; R10.13 Epigastric pain; E78.5 Hyperlipidemia, unspecified; I10 Essential (primary) hypertension; E11.9 Type 2 diabetes mellitus without complications; Z79.01 Long term (current) use of anticoagulants; Z79.4 Long term (current) use of insulin; Z79.899 Other long term (current) drug therapy
CPT/HCPCS: 36000; 36415; 71045; 80053; 83880; 84484; 85025; 93005; 96372; 96374; 99284; J0696; J2270; A9270-GY